=== PATIENT | female | born 1960 | race Caucasian/White ===

== ENCOUNTER 2016-10-17 16:49 | Emergency (ER) | payer OTHER ==
[~2016-10-17] VITALS: Ht 149.9 cm; Wt 58.4 kg
[~2016-10-17 16:49] MED LIST: ALPR0.5T6 PO; AMIT25TA PO; BIOT25004 PO; BUPR150T6 PO; BUTA1CAP59 PO; CHOL200024 PO; CYCL-259 PO; DIAZ5TAB4 PO; ESCI10TA PO; GABA300C10 PO; HYDR-3144 PO; HYDR2TAB29 PO; LEVO25TA4 PO; METH750T87 PO; MULT-298 PO; PHEN30CA2 PO; PRAV40TA2 PO; PROTEIN DRINK PO; THYR30TA PO; ZOLP5TAB6 PO; [UNRECOGNIZED DRUG - CODE] SL; vitamin B12 PO
[2016-10-17] MEDS ORDERED: KETOROLAC 30 MG/1 ML IM ONE (17:30)
[2016-10-17 18:09] VITALS: BP 108/83
[2016-10-17] MEDS ORDERED: KETOROLAC 30 MG/1 ML ONE (18:24)
== END 2016-10-17 18:38 | disposition home or self-care (01) ==
LOC: ED 18:32
DX: S20.212A Contusion of left front wall of thorax, initial encounter (principal); M54.5 Low back pain; W01.0XXA Fall on same level from slipping, tripping and stumbling without subsequent striking against object, initial encounter; Y93.89 Activity, other specified; Y92.009 Unspecified place in unspecified non-institutional (private) residence as the place of occurrence of the external cause; Y99.9 Unspecified external cause status; Z91.040 Latex allergy status
CPT/HCPCS: 71101; 96372; 99284; J1885

== ENCOUNTER → 2018-08-18 | Outpatient (CLI) | payer OTHER ==
[~2018-08-18] MED LIST changes: -BIOT25004 PO; +BIOT25005 PO; -HYDR-3144 PO; +HYDR-3245 PO; -PHEN30CA2 PO; +PHEN30CA3 PO
== END | disposition home or self-care (01) ==
LOC: RAD 12:59
PROVIDERS: ATTEND Physician Assistant
DX: R07.89 Other chest pain (principal)

== ENCOUNTER 2020-02-24 17:50 | Emergency (ER) | payer OTHER ==
[~2020-02-24] VITALS: Ht 149.9 cm; Wt 63.1 kg
--- NOTE | 2020-02-24 18:52 | NUR ---
THIS RN TO ASSUME CARE AT 1848. PT IN C-SPINE COLLAR. PT TO IMAGING AT THIS TIME. SRINIVASAN.
[2020-02-24 20:05] VITALS: BP 120/85
== END 2020-02-24 20:07 | disposition home or self-care (01) ==
LOC: ED 20:06
DX: S16.1XXA Strain of muscle, fascia and tendon at neck level, initial encounter (principal); S39.012A Strain of muscle, fascia and tendon of lower back, initial encounter; R51.9 Headache, unspecified; V49.49XA Driver injured in collision with other motor vehicles in traffic accident, initial encounter; Y93.89 Activity, other specified; Y92.488 Other paved roadways as the place of occurrence of the external cause; Y99.8 Other external cause status
CPT/HCPCS: 70450; 72110; 72125; 99285